=== PATIENT | male | born 1990 | race Caucasian/White ===

== ENCOUNTER 2017-12-08 03:02 | Emergency (ER) | payer OTHER ==
[~2017-12-08] VITALS: Ht 182.9 cm; Wt 77.1 kg
[~2017-12-08 03:02] MED LIST: AUGMENTIN 875875 MG PO; CARBAMAZEPINE200 M2 PO; DARVOCET-N 1001 EACH PO; DILANTIN100 MG PO; ERYTHROMYCIN E3.5 G2 OP; NOHOMEMEDICATIONS; NORCO 5-325 TA1 EACH PO; TYLENOL325 MG PO; ULTRAM 50MG TAB50 MG PO; ZPAK PO
[2017-12-08] MEDS ORDERED: NOHOMEMEDICATIONS (03:17)
[2017-12-08 03:31] LABS: ABSOLUTE BASOPHILS 0.1 thou/uL (0.0-0.2); ABSOLUTE EOSINOPHILS 0.3 thou/uL (0.0-0.7); ABSOLUTE LYMPHOCYTES 1.8 thou/uL (0.8-5.3); ABSOLUTE MONOCYTES 0.8 thou/uL (0.0-1.2); ABSOLUTE NEUTROPHILS 6.6 thou/uL (1.6-8.1); BASOPHILS 0.7 %; HEMATOCRIT 42.4 % (42.0-52.0); HEMOGLOBIN 14.2 gm/dL (14.0-18.0); LYMPHOCYTES 19.3 %; MCH 28.7 pg (26.0-34.0); MCHC 33.5 g/dL (28.0-37.0); MCV 85.7 fL (80.0-100.0); MPV 8.4 fl. (7.2-11.1); NUCLEATED RBCS 0 /100WBC; PLATELET COUNT* 271 thou/uL (150-400); RBC 4.95 mil/uL (4.50-6.00); RDW-CV 14.3 % (10.5-14.5); WBC 9.5 thou/uL (4.0-11.0)
[2017-12-08 03:38] LABS: ANION GAP 6 mmol/L (7-16); BUN 8 mg/dL (7-18); CALCIUM 8.7 mg/dL (8.5-10.1); CHLORIDE 102 mmol/L (98-107); CO2 29 mmol/L (21-32); GLUCOSE 99 mg/dL (70-99); SODIUM 137 mmol/L (136-145)
[2017-12-08 03:45] LABS: ALBUMIN 3.9 g/dL (3.4-5.0); ALKALINE PHOSPHATASE 98 U/L (46-116); SGOT 27 U/L (15-37); SGPT 29 U/L (30-65); TOTAL BILIRUBIN 0.4 mg/dL (<0.1-1.0); TOTAL PROTEIN 6.9 g/dL (6.4-8.2); TROPONIN-I LEVEL <0.06 ng/mL (<0.06)
[2017-12-08 05:49] VITALS: BP 137/75
[2017-12-08] MEDS ORDERED: DILANTIN100 MG PO (06:18)
== END 2017-12-08 05:49 | disposition home or self-care (01) ==
LOC: M.ERS 03:02
PROVIDERS: Family Medicine
DX: R56.9 Unspecified convulsions (principal); R55 Syncope and collapse; F17.210 Nicotine dependence, cigarettes, uncomplicated

== ENCOUNTER 2019-10-05 14:57 | Emergency (ER) | payer MEDICAID ==
[~2019-10-05] VITALS: Ht 177.8 cm; Wt 86.2 kg
[2019-10-05] MEDS ORDERED: KEPPRA XR500 MG PO (15:10)
[2019-10-05 16:06] LABS: CALCIUM 8.4 mg/dL (8.5-10.1); POTASSIUM 3.6 mmol/L (3.5-5.1)
[2019-10-05 16:10] LABS: ALBUMIN 4.3 g/dL (3.4-5.0); TOTAL BILIRUBIN 0.5 mg/dL (<0.1-1.0); TOTAL PROTEIN 7.9 g/dL (6.4-8.2)
[2019-10-05 16:15] LABS: HEMATOCRIT 44.6 % (42.0-52.0); HEMOGLOBIN 15.1 gm/dL (14.0-18.0); MCH 28.5 pg (26.0-34.0); MCHC 33.9 g/dL (28.0-37.0); MCV 84.2 fL (80.0-100.0); MPV 9.2 fl. (7.2-11.1); NUCLEATED RBCS 0 /100WBC; PLATELET COUNT* 295 thou/uL (150-400); RDW-CV 14.3 % (10.5-14.5); WBC 20.2 thou/uL (4.0-11.0)
[2019-10-05 16:47] LABS: PCO2 35.4 mmHg (35.0-45.0); PO2 78.9 mmHg (75.0-100.0)
[2019-10-05 16:54] LABS: ABSOLUTE EOSINOPHILS 0.4 thou/uL (0.0-0.7); ABSOLUTE LYMPHOCYTES 1.6 thou/uL (0.8-5.3); ABSOLUTE MONOCYTES 0.8 thou/uL (0.0-1.2); ABSOLUTE NEUTROPHILS 17.4 thou/uL (1.6-8.1)
[2019-10-05 16:55] LABS: LARGE PLATELETS OCCASIONAL; PLATELET ESTIMATE ADEQUATE
[2019-10-05 17:09] LABS: URINE BILIRUBIN NEGATIVE (Negative); URINE BLOOD 3+ (Negative); URINE CLARITY CLEAR; URINE COLOR YELLOW; URINE GLUCOSE-RANDOM NEGATIVE (Negative); URINE KETONES NEGATIVE (Negative); URINE LEUKOCYTES-REFLEX NEGATIVE (Negative); URINE NITRITE-REFLEX NEGATIVE (Negative); URINE PROTEIN NEGATIVE (Negative); URINE SPECIFIC GRAVITY >= 1.030 (1.005-1.030)
[2019-10-05 17:17] LABS: AMP/METHAMP Negative (Negative); BARBITURATES Negative (Negative); BENZODIAZEPINES Negative (Negative); COCAINE Negative (Negative); METHADONE Negative (Negative); OPIATES Negative (Negative); PCP Negative (Negative); THC POSITIVE (Negative)
[2019-10-05 17:24] LABS: MUCUS 4-6 Moderate strn/LPF (None Seen); SQUAMOUS 0-3 Few /LPF (0-3)
[2019-10-05 17:25] LABS: AMORPHOUS URATES Few /LPF (None Seen); CASTS None Seen /LPF (None Seen); URINE RBC 3-10 Few /HPF (0-2); URINE WBC-REFLEX 0-5 Rare /HPF (0-5)
[2019-10-05 17:26] LABS: BACTERIA-REFLEX None Seen /HPF (None Seen)
[2019-10-05] MEDS ORDERED: HYDROCODON-ACE1 EAC7 PO (17:38)
[2019-10-05 17:52] VITALS: BP 130/70
--- NOTE | 2019-10-06 10:04 | EKG ---
[place] [address] ELECTROCARDIOGRAM REPORT Name: SNOW MCCLURE Room: [facility]#: [id number] Admission: 10/05/19 Attend Phys: Discharge: 10/05/19 Date of : 88 Date of Service: 10/05/19 1529 Report #: [id number] THIS REPORT FOR: //name// [facility] ED Test Date: 2019-10-05 Test Time: 15:29:37 Pat Name: SNOW MCCLURE Department: Room: Gender: [employer]: ERVIN : 1990 Requested By: Kelly Youngblood Order Number: [id number] MD: Harish Meza Measurements Intervals [place] Rate: 80 P: 13 DC: 172 QRS: 32 QRSD: 92 T: 4 QT: 380 QTc: 439 Interpretive Statements Sinus rhythm Borderline T abnormalities, inferior leads ST elev, probable normal early repol pattern Compared to ECG 07/30/2016 12:04:58 T-wave abnormality now present ST (T wave) deviation now present Sinus tachycardia no longer present Electronically Signed On 10-06-2019 10:04:34 CDT by Harish Meza [email or web address] <ELECTRONICALLY SIGNED> By: Harish Meza MD, FACC 10/06/19 1004 1529 1529 Harish Meza MD, FAC /EPI
== END 2019-10-05 17:53 | disposition home or self-care (01) ==
LOC: M.ERS 14:57
PROVIDERS: Personal Emergency Response Attendant
DX: S01.82XA Laceration with foreign body of other part of head, initial encounter (principal); R56.9 Unspecified convulsions; Y93.89 Activity, other specified; X58.XXXA Exposure to other specified factors, initial encounter; Y92.89 Other specified places as the place of occurrence of the external cause; Y99.8 Other external cause status